=== PATIENT | female | born 1940 | race Caucasian/White ===

== ENCOUNTER 2018-02-07 13:23 | Inpatient (IN) | payer OTHER ==
[2018-02-07 15:59] LABS: URINE BLOOD (Dip) POC Trace-intact (NEGATIVE); URINE GLUCOSE (Dip) POC Negative (NEGATIVE); URINE KETONES (Dip) POC Negative (NEGATIVE); URINE LEUKOCYTE EST (Dip) POC Trace (NEGATIVE); URINE NITRITE (Dip) POC Negative (NEGATIVE); URINE TOTAL PROTEIN POC Negative (NEGATIVE)
[2018-02-07 15:59] LABS: URINE PH (Dip) POC 5.5 (5.0-8.5)
[2018-02-07 16:25] LABS: ADD MAN DIFF? NO
[2018-02-07 16:31] LABS: WHITE BLOOD COUNT 7.6 10^3/ul (4.8-10.8)
[2018-02-07 16:31] LABS: BASOPHIL # 0.1 10^3/ul (0.0-0.1); BASOPHILS % 1.4 % (0.0-2.0); EOSINOPHILS # 0.1 10^3/ul (0.0-0.5); EOSINOPHILS % 1.6 % (0.0-7.0); HEMATOCRIT 47.7 % (37.0-47.0); HEMOGLOBIN 16.6 g/dl (12.0-16.0); LYMPHOCYTES # 1.8 10^3/ul (0.8-2.9); LYMPHOCYTES % 23.2 % (15.0-51.0); MEAN CORPUSCULAR HEMOGLOBIN 31.6 pg (29.0-33.0); MEAN CORPUSCULAR HGB CONC 34.8 g/dl (32.0-37.0); MEAN CORPUSCULAR VOLUME 90.9 fl (82.0-101.0); MEAN PLATELET VOLUME 10.6 fl (7.4-10.4); MONOCYTE # 0.8 10^3/ul (0.3-0.9); MONOCYTES % 9.8 % (0.0-11.0); NEUTROPHIL # 4.9 10^3/ul (1.6-7.5); NEUTROPHILS % 63.6 % (39.0-77.0); PLATELET COUNT 365 10^3/UL (140-415); RED BLOOD COUNT 5.25 10^6/ul (4.20-5.40); RED CELL DISTRIBUTION WIDTH 12.7 % (11.5-14.5)
[2018-02-07] MEDS: LIDOCAINE/MYLANTA 40 ML BTL PO (16:39)
[2018-02-07] MEDS: FAMOTIDINE 20 MG INJ IV (16:39)
[2018-02-07] MEDS: HYDROmorphONE 0.5 MG/0.5 ML SYG IV ×2 (16:53→22:14)
[2018-02-07 17:01] LABS: ALANINE AMINOTRANSFERASE 18 IU/L (13-69); ALBUMIN 4.9 g/dl (3.3-4.9); ALBUMIN/GLOBULIN RATIO 1.48; ALKALINE PHOSPHATASE 99 IU/L (42-121); ANION GAP 18 (8-16); ASPARTATE AMINO TRANSFERASE 29 IU/L (15-46); BLOOD UREA NITROGEN 21 mg/dl (7-20); CALCIUM 9.9 mg/dl (8.4-10.2); CARBON DIOXIDE 23 mmol/L (21-31); CHLORIDE 101 mmol/L (97-110); CREATININE 0.77 mg/dl (0.44-1.00); GLUCOSE 101 mg/dl (70-220); LIPASE 181 U/L (23-300); POTASSIUM 4.1 mmol/L (3.5-5.1); SODIUM 138 mmol/L (135-144); TOTAL PROTEIN 8.2 g/dl (6.1-8.1)
[2018-02-07] MEDS ORDERED: NACL 0.9% 3 ML SYG IV (20:00)
[2018-02-07 20:26] LABS: TROPONIN-I < 0.012 ng/ml (0.00-0.12)
[2018-02-07] MEDS: traZODone 100 MG TAB PO (21:00)
[2018-02-07] MEDS: METOPROLOL (XL) 50 MG TAB PO (22:12)
[2018-02-07] MEDS: PANTOPRAZOLE 40 MG INJ IV (22:12)
[2018-02-07] MEDS: SUCRALFATE (100 MG/ML) 10ML CUP GTB (22:12)
[2018-02-07] MEDS: LACTATED RINGER'S 1,000 ML IV ×2 (22:14)
[2018-02-08] MEDS: HYDROmorphONE 0.5 MG/0.5 ML SYG IV ×6 (01:26→22:59)
[2018-02-08 04:01] LABS: TROPONIN-I < 0.012 ng/ml (0.00-0.12)
[2018-02-08] MEDS: LACTATED RINGER'S 1,000 ML IV ×3 (06:00→21:31)
[2018-02-08] MEDS: LEVOTHYROXINE 112 MCG TAB PO (06:04)
[2018-02-08] MEDS ORDERED: PATIENT'S OWN MEDICATION SL (07:00)
[2018-02-08] MEDS: SUCRALFATE (100 MG/ML) 10ML CUP GTB ×4 (08:38→21:26)
[2018-02-08] MEDS: ASPIRIN (EC) 81 MG TAB PO (08:38)
[2018-02-08] MEDS: PANTOPRAZOLE 40 MG INJ IV ×2 (08:38→21:30)
[2018-02-08] MEDS: METOPROLOL (XL) 50 MG TAB PO ×2 (08:39→21:30)
[2018-02-08 09:09] LABS: TROPONIN-I < 0.012 ng/ml (0.00-0.12)
[2018-02-08 13:09] LABS: HIV 1&2 ANTIBODY NEGATIVE (NEGATIVE)
[2018-02-08] MEDS: ONDANSETRON 4 MG INJ IV (13:35)
[2018-02-08] MEDS: traZODone 100 MG TAB PO (21:00)
[2018-02-08] MEDS: IOHEXOL 300MG/ML 150 ML BTL (23:50)
[2018-02-08] MEDS: SOD CHLORIDE 0.9% 100 ML (23:50)
[2018-02-09] MEDS: ONDANSETRON 4 MG INJ IV ×3 (00:29→21:51)
[2018-02-09] MEDS: LACTATED RINGER'S 1,000 ML IV ×2 (02:00→10:21)
[2018-02-09] MEDS: traZODone 100 MG TAB PO ×2 (02:19→21:00)
[2018-02-09] MEDS: LEVOTHYROXINE 112 MCG TAB PO (06:22)
[2018-02-09] MEDS: HYDROmorphONE 0.5 MG/0.5 ML SYG IV ×4 (06:31→21:51)
[2018-02-09] MEDS ORDERED: FLUMAZENIL 0.5 MG INJ (07:00)
[2018-02-09 07:11] LABS: ADD MAN DIFF? NO
[2018-02-09 07:13] LABS: BASOPHIL # 0.1 10^3/ul (0.0-0.1); BASOPHILS % 1.1 % (0.0-2.0); EOSINOPHILS # 0.4 10^3/ul (0.0-0.5); EOSINOPHILS % 6.3 % (0.0-7.0); HEMATOCRIT 37.5 % (37.0-47.0); LYMPHOCYTES # 1.1 10^3/ul (0.8-2.9); MEAN CORPUSCULAR HEMOGLOBIN 32.1 pg (29.0-33.0); MEAN CORPUSCULAR HGB CONC 34.7 g/dl (32.0-37.0); MEAN CORPUSCULAR VOLUME 92.6 fl (82.0-101.0); MEAN PLATELET VOLUME 10.9 fl (7.4-10.4); MONOCYTE # 0.8 10^3/ul (0.3-0.9); MONOCYTES % 13.6 % (0.0-11.0); NEUTROPHIL # 3.3 10^3/ul (1.6-7.5); NEUTROPHILS % 58.6 % (39.0-77.0); PLATELET COUNT 240 10^3/UL (140-415); RED BLOOD COUNT 4.05 10^6/ul (4.20-5.40); RED CELL DISTRIBUTION WIDTH 12.8 % (11.5-14.5)
[2018-02-09 07:13] LABS: WHITE BLOOD COUNT 5.6 10^3/ul (4.8-10.8)
[2018-02-09 07:34] LABS: ANION GAP 8 (8-16); BLOOD UREA NITROGEN 12 mg/dl (7-20); CALCIUM 8.9 mg/dl (8.4-10.2); CARBON DIOXIDE 31 mmol/L (21-31); CHLORIDE 104 mmol/L (97-110); CREATININE 0.73 mg/dl (0.44-1.00); GLUCOSE 97 mg/dl (70-220); POTASSIUM 3.7 mmol/L (3.5-5.1); SODIUM 139 mmol/L (135-144)
[2018-02-09] MEDS: ASPIRIN (EC) 81 MG TAB PO (10:12)
[2018-02-09] MEDS: METOPROLOL (XL) 50 MG TAB PO ×2 (10:12→21:51)
[2018-02-09] MEDS: SUCRALFATE (100 MG/ML) 10ML CUP GTB ×4 (10:13→21:50)
[2018-02-09] MEDS: PANTOPRAZOLE 40 MG INJ IV ×2 (10:13→21:50)
[2018-02-09] MEDS: MIDAZOLAM 1 MG/ML 2 ML INJ (13:28)
[2018-02-09] MEDS: LIDOCAINE 2% (SDV) 5 ML INJ (13:28)
[2018-02-09] MEDS: FENTAnyl 50 MCG/ML VIAL (13:28)
[2018-02-09] MEDS: PROPOFOL 20 ML (13:28)
[2018-02-09] MEDS: SUCCINYLCHOLINE CHLORIDE 100 MG/5 ML SYG IV (13:28)
[2018-02-09] MEDS: EPHEDrine SULFATE 50 MG/5 ML SYG (13:29)
[2018-02-09] MEDS: ESMOLOL 0 ML (13:29)
[2018-02-09] MEDS: PHENYLephrine (100 MCG/ML) 5ML SYG (13:29)
[2018-02-09 15:33] LABS: CARCINOEMBRYONIC ANTIGEN 0.5 ng/ml (0.0-5.0)
[2018-02-09 15:37] LABS: CANCER ANTIGEN 19-9 11.1 U/ml (0.0-37.0)
[2018-02-09 15:38] LABS: ALPHA FETOPROTEIN 1.89 IU/L (0.00-7.21)
[2018-02-10] MEDS ORDERED: NITROGLYCERIN AEROSOL (4.9 GM) SL (00:30)
[2018-02-10] MEDS: LACTATED RINGER'S 1,000 ML IV ×3 (02:24→15:17)
[2018-02-10] MEDS: LEVOTHYROXINE 112 MCG TAB PO (06:47)
[2018-02-10] MEDS: HYDROmorphONE 0.5 MG/0.5 ML SYG IV ×4 (06:48→21:48)
[2018-02-10] MEDS: PANTOPRAZOLE 40 MG INJ IV ×2 (08:31→20:54)
[2018-02-10] MEDS: METOPROLOL (XL) 50 MG TAB PO ×2 (08:32→20:54)
[2018-02-10] MEDS: ASPIRIN (EC) 81 MG TAB PO (08:32)
[2018-02-10] MEDS: SUCRALFATE (100 MG/ML) 10ML CUP GTB ×4 (08:32→20:54)
[2018-02-10 14:09] LABS: INR 0.93; PROTIME 12.6 Sec (11.9-14.9)
[2018-02-10 14:09] LABS: AMYLASE 60 U/L (11-123)
[2018-02-10 14:10] LABS: ALANINE AMINOTRANSFERASE 21 IU/L (13-69); ALBUMIN 3.4 g/dl (3.3-4.9); ALKALINE PHOSPHATASE 74 IU/L (42-121); ANION GAP 13 (8-16); ASPARTATE AMINO TRANSFERASE 26 IU/L (15-46); BILIRUBIN,INDIRECT 1.3 mg/dl (0-1.1); BILIRUBIN,TOTAL 1.3 mg/dl (0.2-1.3); BLOOD UREA NITROGEN 10 mg/dl (7-20); CALCIUM 8.6 mg/dl (8.4-10.2); CARBON DIOXIDE 28 mmol/L (21-31); CHLORIDE 100 mmol/L (97-110); CREATININE 0.68 mg/dl (0.44-1.00); GLUCOSE 85 mg/dl (70-220); POTASSIUM 3.7 mmol/L (3.5-5.1); SODIUM 137 mmol/L (135-144)
[2018-02-10 15:35] LABS: LIPASE 155 U/L (23-300)
[2018-02-10] MEDS: INDOMETHACIN 50 MG SUPP PR (16:00)
[2018-02-10] MEDS ORDERED: IOHEXOL 300MG/ML 30 ML BTL (16:09)
[2018-02-10] MEDS ORDERED: CEFAZOLIN 1 GM INJ (17:11)
[2018-02-10] MEDS ORDERED: PROPOFOL 20 ML (17:12)
[2018-02-10] MEDS ORDERED: SUCCINYLCHOLINE CHLORIDE 100 MG/5 ML SYG IV (17:12)
[2018-02-10] MEDS ORDERED: LIDOCAINE 100 MG SYRINGE (17:12)
[2018-02-10] MEDS ORDERED: ONDANSETRON 4 MG INJ (17:13)
[2018-02-10] MEDS: ONDANSETRON 4 MG INJ IV ×2 (18:17→19:49)
[2018-02-10] MEDS ORDERED: FENTAnyl 50 MCG/ML VIAL (18:40)
[2018-02-10] MEDS ORDERED: METOCLOPRAMIDE 10 MG INJ (18:40)
[2018-02-10] MEDS: FENTAnyl 50 MCG/ML VIAL IV ×2 (18:53→19:01)
[2018-02-10] MEDS: METOCLOPRAMIDE 10 MG INJ IV (18:53)
[2018-02-10] MEDS: traZODone 100 MG TAB PO (20:54)
[2018-02-10] MEDS ORDERED: HYDROmorphONE 0.5 MG/0.5 ML SYG IV (21:12)
[2018-02-11] MEDS: LACTATED RINGER'S 1,000 ML IV ×2 (05:04→11:47)
[2018-02-11] MEDS: LEVOTHYROXINE 112 MCG TAB PO (06:05)
[2018-02-11] MEDS: SUCRALFATE (100 MG/ML) 10ML CUP GTB ×2 (09:06→12:29)
[2018-02-11] MEDS: PANTOPRAZOLE 40 MG INJ IV (09:06)
[2018-02-11] MEDS: ASPIRIN (EC) 81 MG TAB PO (09:06)
[2018-02-11] MEDS: METOPROLOL (XL) 50 MG TAB PO (09:07)
[2018-02-11 09:26] LABS: LIPASE 66 U/L (23-300)
[2018-02-11 09:26] LABS: AMYLASE 70 U/L (11-123)
[2018-02-11] MEDS: OXYCODONE/ACETAMINOPHEN (10/325) TAB PO (12:20)
[2018-02-11] MEDS ORDERED: IOHEXOL 300MG/ML 150 ML BTL ×2 (14:35)
== END 2018-02-11 18:10 | disposition home health service (06) | DRG 392 ==
LOC: TEL 02-09 02:09 → E/R 13:23 → MS2 18:13 → TEL 21:18
PROVIDERS: Internal Medicine
PROC: 0DB58ZX Excision of Esophagus, Via Natural or Artificial Opening Endoscopic, Diagnostic (ICD-10-PCS; principal; 2018-02-09 13:00)
PROC: 0DB68ZX Excision of Stomach, Via Natural or Artificial Opening Endoscopic, Diagnostic (ICD-10-PCS; 2018-02-09 13:00)
PROC: 0F798DZ Dilation of Common Bile Duct with Intraluminal Device, Via Natural or Artificial Opening Endoscopic (ICD-10-PCS; 2018-02-09 13:00)
PROC: 0FB98ZX Excision of Common Bile Duct, Via Natural or Artificial Opening Endoscopic, Diagnostic (ICD-10-PCS; 2018-02-09 13:00)
PROC: BF10YZZ Fluoroscopy of Bile Ducts using Other Contrast (ICD-10-PCS; 2018-02-09 13:00)
DX: K20.9 Esophagitis, unspecified (principal); K29.70 Gastritis, unspecified, without bleeding; I10 Essential (primary) hypertension; I25.10 Atherosclerotic heart disease of native coronary artery without angina pectoris; E03.9 Hypothyroidism, unspecified; G89.29 Other chronic pain; Z98.61 Coronary angioplasty status; Z90.3 Acquired absence of stomach [part of]; I25.2 Old myocardial infarction; Z87.891 Personal history of nicotine dependence; K83.8 Other specified diseases of biliary tract
CPT/HCPCS: 36415; 74178; 74181; 74330; 76705; 80048; 80053; 81003; 82105; 82150; 82378; 83690; 84484; 85025; 85610; 86301; 86703; 88104; 88305; 88312; 88313; 93005; 93306; 96374; 96375; 99217; 99285-25; G0378